=== PATIENT | male | born 1995 | race Hispanic/Latino ===

== ENCOUNTER 2025-05-03 12:08 | Inpatient (IN) | payer SELFPAY ==
[2025-05-02 15:45] VITALS: BP 163/101
[2025-05-02 16:12] VITALS: BMI 37.0
--- NOTE | 2025-05-02 16:12 | ED.GENMED ---
History of Present Illness
<Lena Hand PA-C - Last Filed: 05/02/25 22:20>
General
Chief Complaint: Abdominal Pain
Source: patient
Exam Limitations: none
Time Seen by Provider: 05/02/25 15:56
History of Present Illness
History of Present Illness:
29yoM with no significant past medical history presenting for evaluation of abdominal pain. He is Niuean speaking and history is obtained with the assistance of a video interpreter translator. He reports severe pain in his left lower quadrant that started
yesterday. Pain is worse with movement. He denies any trauma or inciting incident. No history of similar pains in the past. Pain worsens when he defecates and he is having 'a little' diarrhea. He also reports decreased urine output and
subjective fevers at home. Temperature is 100.7 on arrival. He denies any nausea, vomiting, flank pain, testicular pain, scrotal swelling. No prior abdominal surgeries.
Phy Exam
<Lena Hand PA-C - Last Filed: 05/02/25 22:20>
Physical Exam
Physical Exam:
Appears uncomfortable due to pain
General Physical Exam
General Presentation: mild distress
General age: appears stated age
General Skin: warm and dry
General Habitus: normal
General Mental: alert
ENT Exam
ENT Exam: normocephalic
Pulmonary Exam
Pulmonary Exam: no respiratory distress
Gastrointestinal Exam
Gastrointestinal Exam: soft, non distended and other (+Tenderness in suprapubic and LLQ region. +Voluntary guarding. No rebound. Abdomen soft, non-distended. )
Neurological Exam
Neurological Exam: alert
Guerline Coma Scale
Eye Opening: Spontaneous
Verbal Response: Oriented
Motor Response: Obeys Commands
GCS Total Score: 15
Skin Exam
Skin Exam: normal color and warm/dry
Psychiatric Exam
Psychiatric Exam: normal mood/affect
<Laz Saunders DO - Last Filed: 05/02/25 20:11>
Guerline Coma Scale
GCS Total Score: 15
Sepsis
<Lena Hand PA-C - Last Filed: 05/02/25 22:20>
Sepsis Screening
Sepsis Assessment: Sepsis
Sepsis Screen
Sepsis Screen: Sepsis
Date: 05/02/25
Time: 22:18
Course
<Lena Hand PA-C - Last Filed: 05/02/25 22:20>
Orders/Labs/Results
Orders:
Orders
05/02/25 Dinner
NPO
Allow oral meds: Yes
Allow clear liquids: Sips of Clears
05/02/25 16:10
0.9% Sodium Chloride 1000 ml [Nss] 1,000 ml IV BOLUS
Acetaminophen [Tylenol] 1,000 mg PO NOW STA
HYDROmorphone [Dilaudid] 0.5 mg IV NOW STA
05/02/25 16:11
CT Abd/pelvis W Iv Cont Urgent
Comment:
Reason For Exam: LLQ pain, fever
05/02/25 16:20
Complete Blood Count/With Diff Urgent
Comprehensive Metabolic Panel Urgent
Lactate Level [Lactic Acid] Urgent
Lipase Urgent
05/02/25 16:54
0.9% Sodium Chloride 1000 ml [Nss] 1,000 ml IV BOLUS
05/02/25 17:09
Urinalysis Reflex To Culture Urgent
Date Specimen was Collected: 05/02/25
Time Specimen was Collected: 16:50
05/02/25 17:51
HYDROmorphone [Dilaudid] 1 mg IV NOW STA
05/02/25 18:40
Blood Culture Q30M
SHARI Source: Blood/Venous
Specimen Description:
Blood Culture Q30M
SHARI Source: Blood/Venous
Specimen Description:
05/02/25 19:13
Piperacillin/Tazo 4.5 Gram [Zosyn] 4.5 gram in 100 ml IV NOW
05/02/25 19:57
Admit/Transfer Patient As Directed
Co-Sign Provider:
Level of Care: Observation services
Assign to:: Medical/Surgical
Physician / Group: devang
Diagnosis: colitis
Code Status As Directed
Resuscitation Status: Full Code
PRN Pain Medication Management As Directed
May give lesser potent ordered pain med per pt: Yes
preference::
Protocol:: Medication orders for pain may be administered in a
manner that supports deferring to patient preference
when the pt is:
- Requesting an ordered lesser potent pain medication.
Least to most potent pain medications are defined
as: acetaminophen < NSAID < tramadol < opioids
(morphine, oxycodone, hydromorphone).
- Requesting a lesser dose of the same medication IF
ORDERED.
- Requesting a less intrusive route of administration
if both routes are prescribed by the provider (PO <
IV).
05/02/25 20:02
CDIFF [C difficile Antigen & Toxins] Routine
SHARI Source: Feces/Stool
Specimen Description:
Norovirus by PCR Routine
SHARI Source: Feces/Stool
Specimen Description:
Stool Culture Routine
SHARI Source: Feces/Stool
Specimen Description:
05/02/25 21:07
0.9% Sodium Chloride 1000 ml [Nss] 1,000 ml IV 100 mls/hr
HYDROmorphone [Dilaudid] 0.5 mg IV Q4HPRN PRN
Heparin 5,000 units SC Q12
Ondansetron Injectable [Zofran] 4 mg IV Q6HPRN PRN
05/02/25 21:07
Activity As Directed
Activity Level: As Tolerated
Vital Signs As Directed
Frequency: Per unit guidelines
DX Deep Vein Thrombosis Video Routine
05/02/25 22:00
Acetaminophen [Tylenol] 650 mg PO Q4HPRN PRN
05/03/25 01:00
Piperacillin/Tazo 3.375 Gram [Zosyn] 3.375 gram in 50 ml IV Q6H
05/03/25 06:00
Complete Blood Count/With Diff IN AM
Comprehensive Metabolic Panel IN AM
Abnormal Lab Results
05/02/25 05/02/25
16:20 17:09
Absolute Neuts (auto) 7.7 H 10^3/uL
(1.4-6.5)
Lymphocytes % 18.5 L %
(20.5-51.1)
Glucose 209 H mg/dl
(70-99)
Lactic Acid 3.5 H mmol/L
(0.7-2.0)
ALT 161 H U/L
(0-50)
Total Protein 8.5 H g/dl
(6.3-8.2)
Urine Glucose 1+ A
(Negative)
05/02/25 16:20
05/02/25 16:20
Vital Signs
Initial and Last Documented VS:
Initial Vital Signs
Temp Pulse Resp BP Pulse Ox
100.7 F H 133 18 163/101 98
05/02/25 15:45 05/02/25 15:45 05/02/25 15:45 05/02/25 15:45 05/02/25 15:45
Last Documented Vital Signs
Temp Pulse Resp BP Pulse Ox
99.1 F 133 18 120/73 95
05/02/25 21:42 05/02/25 15:45 05/02/25 15:45 05/02/25 21:39 05/02/25 21:39
<Laz Saunders DO - Last Filed: 05/02/25 20:11>
Orders/Labs/Results
Orders:
Orders
05/02/25 Dinner
NPO
Allow oral meds: Yes
Allow clear liquids: Sips of Clears
05/02/25 16:10
0.9% Sodium Chloride 1000 ml [Nss] 1,000 ml IV BOLUS
Acetaminophen [Tylenol] 1,000 mg PO NOW STA
HYDROmorphone [Dilaudid] 0.5 mg IV NOW STA
05/02/25 16:11
CT Abd/pelvis W Iv Cont Urgent
Comment:
Reason For Exam: LLQ pain, fever
05/02/25 16:20
Complete Blood Count/With Diff Urgent
Comprehensive Metabolic Panel Urgent
Lactate Level [Lactic Acid] Urgent
Lipase Urgent
05/02/25 16:54
0.9% Sodium Chloride 1000 ml [Nss] 1,000 ml IV BOLUS
05/02/25 17:09
Urinalysis Reflex To Culture Urgent
Date Specimen was Collected: 05/02/25
Time Specimen was Collected: 16:50
05/02/25 17:51
HYDROmorphone [Dilaudid] 1 mg IV NOW STA
05/02/25 18:40
Blood Culture Q30M
SHARI Source: Blood/Venous
Specimen Description:
Blood Culture Q30M
SHARI Source: Blood/Venous
Specimen Description:
05/02/25 19:13
Piperacillin/Tazo 4.5 Gram [Zosyn] 4.5 gram in 100 ml IV NOW
05/02/25 19:57
Admit/Transfer Patient As Directed
Co-Sign Provider:
Level of Care: Observation services
Assign to:: Medical/Surgical
Physician / Group: devang
Diagnosis: colitis
Code Status As Directed
Resuscitation Status: Full Code
PRN Pain Medication Management As Directed
May give lesser potent ordered pain med per pt: Yes
preference::
Protocol:: Medication orders for pain may be administered in a
manner that supports deferring to patient preference
when the pt is:
- Requesting an ordered lesser potent pain medication.
Least to most potent pain medications are defined
as: acetaminophen < NSAID < tramadol < opioids
(morphine, oxycodone, hydromorphone).
- Requesting a lesser dose of the same medication IF
ORDERED.
- Requesting a less intrusive route of administration
if both routes are prescribed by the provider (PO <
IV).
05/02/25 20:02
CDIFF [C difficile Antigen & Toxins] Routine
SHARI Source: Feces/Stool
Specimen Description:
Norovirus by PCR Routine
SHARI Source: Feces/Stool
Specimen Description:
Stool Culture Routine
SHARI Source: Feces/Stool
Specimen Description:
05/02/25 21:07
0.9% Sodium Chloride 1000 ml [Nss] 1,000 ml IV 100 mls/hr
HYDROmorphone [Dilaudid] 0.5 mg IV Q4HPRN PRN
Heparin 5,000 units SC Q12
Ondansetron Injectable [Zofran] 4 mg IV Q6HPRN PRN
05/02/25 21:07
Activity As Directed
Activity Level: As Tolerated
Vital Signs As Directed
Frequency: Per unit guidelines
DX Deep Vein Thrombosis Video Routine
05/02/25 22:00
Acetaminophen [Tylenol] 650 mg PO Q4HPRN PRN
05/03/25 01:00
Piperacillin/Tazo 3.375 Gram [Zosyn] 3.375 gram in 50 ml IV Q6H
05/03/25 06:00
Complete Blood Count/With Diff IN AM
Comprehensive Metabolic Panel IN AM
Abnormal Lab Results
05/02/25 05/02/25
16:20 17:09
Absolute Neuts (auto) 7.7 H 10^3/uL
(1.4-6.5)
Lymphocytes % 18.5 L %
(20.5-51.1)
Glucose 209 H mg/dl
(70-99)
Lactic Acid 3.5 H mmol/L
(0.7-2.0)
ALT 161 H U/L
(0-50)
Total Protein 8.5 H g/dl
(6.3-8.2)
Urine Glucose 1+ A
(Negative)
05/02/25 16:20
05/02/25 16:20
Vital Signs
Initial and Last Documented VS:
Initial Vital Signs
Temp Pulse Resp BP Pulse Ox
100.7 F H 133 18 163/101 98
05/02/25 15:45 05/02/25 15:45 05/02/25 15:45 05/02/25 15:45 05/02/25 15:45
Last Documented Vital Signs
Temp Pulse Resp BP Pulse Ox
99.1 F 133 18 120/73 95
05/02/25 21:42 05/02/25 15:45 05/02/25 15:45 05/02/25 21:39 05/02/25 21:39
Saullt;Lena Hand PA-C - Last Filed: 05/02/25 22:20>
MDM/Problems Addressed
Differential Diagnosis Includes:
29yoM here with LLQ pain x 1 day. Febrile to 100.7 on arrival with associated tachycardia. Patient appears uncomfortable. Voluntary guarding noted on abdominal exam. Differential diagnosis includes but is not limited to: appendicitis,
diverticulitis, colitis, perforated viscous, kidney stone
Initial ED plan: Check abdominal labs, lactate, UA, and CT abdomen. Tylenol, IV Dilaudid, and fluid bolus for symptoms.
<Lena Hand PA-C - Last Filed: 05/02/25 22:20>
*Pulse Oximetry
SaO2: 98
Oxygen Mode of Delivery: Room air
Patient hypoxic: no
*Critical Care Note
Total Time (30-74mins, 75-104mins- exclusive of procedures): Not Applicable
<Lena Hand PA-C - Last Filed: 05/02/25 22:20>
Update Note
Update Note:
White count normal but lactate elevated at 3.5. Glucose also elevated at 209, no known history of diabetes. CT shows inflamed segment of proximal sigmoid colon which may be diverticulitis vs. colitis. Patient spiked a fever to 102.5 while in
emergency department. Blood cultures and IV Zosyn ordered. Patient also requiring multiple doses of Dilaudid for pain control. Patient admitted for further evaluation and management.
ED Attending Note
<Lena Hand PA-C - Last Filed: 05/02/25 22:20>
-
Portions of this chart may have been created with voice recognition software.� Occasional wrong word or��sound alike� substitutions may have occurred due to the inherent limitations of voice recognition software.
<Laz Saunders DO - Last Filed: 05/02/25 20:11>
ED Attending Note
Patient seen and examined by attending physician: Yes
I performed the substantive portion of visit, reviewed & personally made and approve the management plan that is documented in note by myself or ADRI.: Yes
ED Attending Note:
Seen with PA examined independently agree with assessment and plan 29-year-old male left lower abdominal pain fever CT report noted
Discharge Plan
Departure
Patient Disposition: Admit
Date of Disposition: 05/02/25
Time of Disposition: 19:35
Presentation/result/management discussed w/ accepting MD/DO: Hospitalist
Discharge Problem:
Colitis, Sepsis
Interventions
Interventions:
*Risk Screen - Suicide Last Done: 05/02/25 15:51
*General Assessment Last Done: 05/02/25 16:33
*Neglect/Abuse Screening Last Done: 05/02/25 15:51
*ED- Fall Risk Assessment Last Done: 05/02/25 16:33
*ED COVID-19 Vaccine History Last Done: 05/02/25 16:33
*ED Influenza Vaccine History Last Done: 05/02/25 16:33
QJ-Dkckfk-Osuhkigxtw Assessment Last Done: 05/02/25 16:33
[2025-05-02 16:13] VITALS: BP 157/88
[2025-05-02] MEDS: NSS 1000 IV ×3 (16:21→21:34)
[2025-05-02] MEDS: TYLENOL 1000 MG PO (16:23)
[2025-05-02] MEDS: DILAUDID 0.5 MG IV (16:24)
[2025-05-02 16:44] LABS: Hematocrit 43.8 % (39.0-52.0); Hemoglobin 15.9 g/dL (13.0-18.0); Mean Corp Hgb Conc. 36.3 g/dL (33.0-37.0); Mean Corpuscular Volume 81.1 fL (80.0-94.0); Nucleated Red Blood Cells % 0 % (-); Platelet Count 225 10^3/uL (130-400); Red Cell Dist. Width 12.3 % (11.5-14.5)
[2025-05-02 16:53] LABS: ALT (SGPT) 161 U/L (0-50); AST (SGOT) 55 U/L (17-59); Albumin 4.9 g/dl (3.5-5.0); Alkaline Phosphatase 117 U/L (38-126); Blood Urea Nitrogen 10 mg/dl (9-20); Calcium 9.2 mg/dl (8.4-10.2); Carbon Dioxide 26 mmol/L (22-30); Chloride 101 mmol/L (98-107); Estimated Creatinine Clearance > 125 ml/min; Glucose 209 mg/dl (70-99); Lipase 100 U/L (23-300); Potassium 4.4 mmol/L (3.5-5.1); Sodium 140 mmol/L (135-145); Total Protein 8.5 g/dl (6.3-8.2); eGFR > 60.00
[2025-05-02 17:17] LABS: Urine Character Clear (Clear)
[2025-05-02] MEDS: DILAUDID 1 MG IV (18:10)
[2025-05-02 18:17] VITALS: BP 132/67
[2025-05-02] MEDS: ZOSYN 100 IV (19:19)
--- NOTE | 2025-05-02 19:59 | HPS.HSE ---
Addendum entered and electronically signed by Yady Ritter MD 05/02/25 20:02:
CT scan showed 7 cm segment of proximal sigmoid colon wall thickening inflammatory soft tissue stranding which could may be diverticulitis versus colitis.
Original Note:
Family Physician
-
Family Physician: * NONE
Chief Complaint
-
abdominal pain
History of Present Illness
29-year-old Portuguese-speaking male presenting for abdominal pain in the left lower quadrant the started yesterday. Pain is worse with movement. Denies any trauma. Denies any prior history of similar pain. Pain is worse with having a bowel
movement and he has a little bit loose stool. He has decreased urine output. He has subjective fever. Denies any nausea or vomiting or flank pain or testicular pain.
He occasionally drinks 3-4 beers when he is tired or stressed. He smokes occasionally.
He ate raw chicken 3 days ago. Denies any recent travel.
Medical History
Past Medical History
Past Medical History: Reports None
Past Surgical History: Reports None
Social History
Tobacco: Smoker
Alcohol: Occasional
Drug: None
Family History
Family History: Not pertinent
Allergies / Home Medications
Allergies reflects when Allergies were last updated in [facility].
Home Medications with original date entered in [facility]
Allergy/Medication List:
Allergies
Allergy/AdvReac Type Severity Reaction Status Date / Time
aspirin Allergy Anaphylaxis Verified 05/02/25 15:50
Review of Systems
-
History Source: Patient
A 12 point ROS was completed and negative except as noted: Yes
Constitutional: Reports No Symptoms
EENT: Reports No Symptoms
Respiratory: Reports No Symptoms
Cardiac: Reports No Symptoms
Abdomen/GI: Reports See HPI
: Reports No Symptoms
Musculoskeletal: Reports No Symptoms
Skin: Reports No Symptoms
Neurological: Reports No Symptoms
Endocrine: Reports No Symptoms
Hematologic/Lymphatic: Reports No Symptoms
Psych: Reports No Symptoms
Physical Exam
Vital Signs
Vital Signs
Temp Pulse Resp BP Pulse Ox
102.5 F H 133 18 132/67 98
05/02/25 18:16 05/02/25 15:45 05/02/25 15:45 05/02/25 18:17 05/02/25 18:18
Physical Exam
General: Well Developed, Well Nourished and No Apparent Distress
HEENT: NormoCephalic, Moist mucous membranes and Atraumatic
Respiratory: Clear
Cardiac: S1/S2 and Regular Rhythm; No Murmur or Rub
GI: Soft, Non Distended, Normal Bowel Sounds and Tender (LLQ ); No Organomegaly
Rectal: Deferred by Provider
Musculoskeletal: No Clubbing, No Cyanosis and No Edema
Skin: No Rash
Neuro: Nonfocal/grossly intact
Laboratory Results
-
05/02/25 16:20
05/02/25 16:20
Laboratory Results
Lactic Acid 3.5 mmol/L (0.7-2.0) H 05/02/25 16:20
Total Bilirubin 0.5 mg/dl (0.2-1.3) 05/02/25 16:20
AST 55 U/L (17-59) 05/02/25 16:20
ALT 161 U/L (0-50) H 05/02/25 16:20
Alkaline Phosphatase 117 U/L (38-126) 05/02/25 16:20
Lipase 100 U/L (23-300) 05/02/25 16:20
Data Reviewed
-
Lab Data: Labs Reviewed by me
Old Records: Reviewed
Impression/Plan
-
IMPRESSION:
PLAN:
# Acute colitis versus diverticulitis
-Blood cultures pending
-Stool studies if can check
-N.p.o.
- IV fluids
- Zosyn
- Zofran, Dilaudid
Full code
DVT prophylaxis heparin
N.p.o.
[2025-05-02] MEDS: HEPARIN 5000 UNITS SC (21:34)
[2025-05-02 21:39] VITALS: BP 120/73
[2025-05-03] MEDS: ZOSYN 50 IV ×4 (01:57→20:19)
[2025-05-03 06:22] LABS: Hematocrit 35.8 % (39.0-52.0); Hemoglobin 13.1 g/dL (13.0-18.0); Mean Corp Hgb Conc. 36.6 g/dL (33.0-37.0); Mean Corpuscular Volume 81.4 fL (80.0-94.0); Nucleated Red Blood Cells % 0 % (-); Platelet Count 196 10^3/uL (130-400); Red Cell Dist. Width 12.2 % (11.5-14.5)
[2025-05-03 06:48] LABS: ALT (SGPT) 113 U/L (0-50); AST (SGOT) 37 U/L (17-59); Albumin 3.8 g/dl (3.5-5.0); Alkaline Phosphatase 84 U/L (38-126); Blood Urea Nitrogen 11 mg/dl (9-20); Calcium 8.6 mg/dl (8.4-10.2); Carbon Dioxide 26 mmol/L (22-30); Chloride 103 mmol/L (98-107); Estimated Creatinine Clearance > 125 ml/min; Glucose 133 mg/dl (70-99); Potassium 3.6 mmol/L (3.5-5.1); Sodium 133 mmol/L (135-145); Total Protein 6.9 g/dl (6.3-8.2); eGFR > 60.00
[2025-05-03] MEDS: HEPARIN 5000 UNITS SC ×2 (08:01→21:27)
[2025-05-03] MEDS: TYLENOL 650 MG PO (08:01)
[2025-05-03] MEDS: NSS 1000 IV ×2 (08:03→16:23)
[2025-05-03 08:13] VITALS: BP 106/60
--- NOTE | 2025-05-03 08:58 | W.PN.HOSP.TC ---
Addendum entered and electronically signed by Paris Rogel MD 05/03/25 12:07:
Attending�addendum:
I saw and evaluated the patient. I reviewed the resident�s note and agree with findings and plan as documented in the resident�s note. Admitted this a day with abdominal pain, CT finding shows colitis/diverticulitis, noted to have lactic acidosis,
patient was started on IV fluid and IV Zosyn,�patient seen and examined at bedside, denies any chest pain or shortness of breath, still with mild abdominal pain, but no nausea, no vomiting, no diarrhea or constipation.
Physical�exam:
GENERAL : Patient is awake, alert, oriented x3
HEENT: Nonicteric sclerae, PERRLA, EOMI. Oropharynx clear. Moist mucous membranes. Conjunctivae appear well perfused.
CHEST: Chest wall is nontender.
HEART: Regular rate and rhythm without murmurs.
LUNGS: Clear to auscultation bilaterally.
ABDOMEN: Soft, positive bowel sounds, nontender, no organomegaly.
RECTAL: Deferred.
MUSCLES/EXTREMITIES: No abnormal range of motion, no swelling.SKIN: No rash, no excessive bruising, petechiae, or purpura.
NEUROLOGIC: Cranial nerves II-XII intact without motor/sensory deficit.
�
Assessment/plan:
Severe sepsis with acute organ dysfunction.
Acute organ function in form of lactic acidosis.
Patient meets sepsis criteria on admission.
Fever, tachycardia
Antibiotic in form of Zosyn.
IV fluid.
Ordered diet if patient still have pain will upgrade to inpatient.
Pending stool studies.
CODE STATUS: Full code
DVT prophylaxis: Heparin
Diet: CLd/LRD
Disposition: Upgrade to inpatient
�
Total time spent on today�s encounter was 51 minutes which included time spent in counseling the patient/family regarding diagnosis and treatment plan as listed above, goals of care, and symptom management. Case was discussed with nursing staff,
specialists, and care coordinators/case management. All labs and imaging personally reviewed by me. Remainder the time spent in detailed review of previous records, lab data, imaging, and other medical provider documentation.
Original Note:
Today's Communication/Plan
-
Trend lactate
Continue IVF, antibiotics
CM consult
Assessment / Plan
Assessment / Plan
ASSESSMENT:
A 29 year old male with no significant past medical history who presented to the ED with abdominal pain. Patient consumed undercooked chicken 3 days ago, and developed mild abdominal pain 2 days ago. The pain has been worsening in severity and is
worsened with movement and passing bowels. He also endorses loose stool, decreased urine output and a subjective fever at home. Denies nausea, vomiting, headache, shortness of breath, chest pain or any other symptoms. No trauma or similar episodes
in the past.
CT A/P 05/02/25: 7 cm segment of the proximal sigmoid colon with wall thickening and inflammatory soft tissue stranding. Possible considerations include acute diverticulitis, though no specific diverticulum is identified. The differential may
include nonspecific localized segmental colitis. No evidence of pneumatosis. No perforation. No focal collection or abscess. No bowel obstruction. No obstructive uropathy.
PLAN:
# Sepsis secondary to acute colitis versus diverticulitis
CT as above
Lactate on admission 3.5. Trend lactate.
Tmax 102.5 on 05/02/25. Afebrile now.
NPO on 05/02/2025; patient has improvement in symptoms; low residue diet 05/03/2025
Continue IV fluids
Continue IV Zosyn. Follow blood cultures.
Continue Zofran PRN for nausea
Continue Tylenol 650 mg q4PRN Dilaudid PRN for pain
Full code
DVT prophylaxis: heparin
Anticipated Discharge: 24 - 48 hours
Subjective/Interval History
-
Date of Service: May 03, 2025
Patient evaluated at bedside this morning with the help of admeasurer [id number]. Patient presented to the ED with abdominal pain. He consumed undercooked chicken 3 days ago (Tuesday) after which she developed mild abdominal pain on Tuesday.
The abdominal pain is mostly localized in the left lower quadrant and has been worsening in severity. Patient reports severe LLQ pain yesterday with associated decreased which prompted the ED visit. No nausea, vomiting, headache, shortness of
breath, chest pain or any other symptoms. No trauma or similar episodes in the past.
Patient's abdominal pain has improved since yesterday. No diarrhea today. No new complaints.
Objective Data
-
Labs:
Laboratory Results
05/03/25
05:56
WBC 8.8
Hgb 13.1
Hct 35.8 L
Plt Count 196
Sodium 133 L
Potassium 3.6
Chloride 103
Carbon Dioxide 26
BUN 11
Creatinine 0.6 L
Glucose 133 H
Calcium 8.6
Total Bilirubin 0.9
AST 37
ALT 113 H
Alkaline Phosphatase 84
Vital Signs:
Vital Signs
Temp Pulse Resp BP Pulse Ox
98.0 F 80 18 106/60 98
05/03/25 08:13 05/03/25 08:13 05/03/25 08:13 05/03/25 08:13 05/03/25 08:13
Review of Systems
-
History Source: Patient
Constitutional: Reports No Symptoms
EENT: Reports No Symptoms Reported
Respiratory: Reports No Symptoms
Cardiac: Reports No Symptoms
Abdomen/GI: Reports Abdominal Pain
Genitourinary: Reports Other (Decreased urine output)
Skin: Reports No Symptoms
Neuro: Reports No Symptoms
Endocrine: Reports No Symptoms
Hematologic / Lymphatic: Reports No Symptoms
Physical Exam
-
General: Well Developed, Well Nourished, No Apparent Distress, Comfortable and Conversant
HEENT: Normocephalic, Atraumatic, Moist Mucous Membranes, Nose Appears Normal and Ears Appear Normal
Respiratory: Clear to Auscultation
Cardiac: Regular Rhythm and S1/S2
GI: Soft, Nondistended, Normal Bowel Sounds and Tender (LLQ)
Musculoskeletal: No Clubbing, No Cyanosis and No Edema
Skin: Warm
Neuro: Awake and AO x 3
Psych: Calm
Data Reviewed
-
CT Scan: Report Reviewed by me, Discussed with Physician and Discussed with Patient
Labs: Labs Reviewed by me, Discussed with Physician and Discussed with Patient
Old Records: Reviewed
--- NOTE | 2025-05-03 09:56 | EDCM ---
CM reviewed chart and met with pt bedside in ED. Video policy director used. Lives with his uncle, independent, no assistive devices, no DME.
OBS form reviewed and signed, copy left with pt.
Confirms he does not have health insurance and does not have PCP. Given [place] language brochure for [facility].
I emailed Emilee at [facility] and asked her to follow up with pt.
Pharmacy- [facility]
Anticipate discharge home, no needs. CM will continue to follow for any discharge planning needs.
[2025-05-03 11:14] VITALS: BP 117/59
[2025-05-03 11:15] VITALS: BMI 57.7
[2025-05-03 15:03] VITALS: BP 106/50
[2025-05-03 23:19] VITALS: BP 123/79
[2025-05-04] MEDS: ZOSYN 50 IV ×2 (01:45→06:22)
[2025-05-04] MEDS: NSS 1000 IV (05:30)
[2025-05-04] MEDS: HEPARIN SC (07:56)
[2025-05-04 08:10] VITALS: BP 114/80
[2025-05-04 08:18] LABS: Hematocrit 39.1 % (39.0-52.0); Hemoglobin 13.7 g/dL (13.0-18.0); Mean Corp Hgb Conc. 35.0 g/dL (33.0-37.0); Mean Corpuscular Volume 81.6 fL (80.0-94.0); Nucleated Red Blood Cells % 0 % (-); Platelet Count 224 10^3/uL (130-400); Red Cell Dist. Width 12.2 % (11.5-14.5)
--- NOTE | 2025-05-04 08:25 | W.PN.HOSP.TC ---
Addendum entered and electronically signed by Paris Rogel MD 05/04/25 13:01:
Attending�addendum:
I saw and evaluated the patient. I reviewed the resident�s note and agree with findings and plan as documented in the resident�s note. Patient seen and examined at bedside, denies any chest pain or shortness of breath, no abdominal pain, no nausea,
no vomiting, no diarrhea or constipation.
Physical�exam:
GENERAL : Patient is awake, alert, oriented x3
HEENT: Nonicteric sclerae, PERRLA, EOMI. Oropharynx clear. Moist mucous membranes. Conjunctivae appear well perfused.
CHEST: Chest wall is nontender.
HEART: Regular rate and rhythm without murmurs.
LUNGS: Clear to auscultation bilaterally.
ABDOMEN: Soft, positive bowel sounds, nontender, no organomegaly.
RECTAL: Deferred.
MUSCLES/EXTREMITIES: No abnormal range of motion, no swelling.SKIN: No rash, no excessive bruising, petechiae, or purpura.
NEUROLOGIC: Cranial nerves II-XII intact without motor/sensory deficit.
�
Assessment/plan:
Severe sepsis with acute organ dysfunction.
Acute organ function in form of lactic acidosis.
Patient meets sepsis criteria on admission.
Fever, tachycardia
Antibiotic in form of Zosyn.
IV fluid.
Ordered diet if patient still have pain will upgrade to inpatient.
Pending stool studies.
05/04
Stool study negative.
Symptoms improved.
Discharge home on oral Augmentin
CODE STATUS: Full code
DVT prophylaxis: Heparin
Diet: regular
Disposition: Discharge home
�
Total time spent on today�s encounter was 51 minutes which included time spent in counseling the patient/family regarding diagnosis and treatment plan as listed above, goals of care, and symptom management. Case was discussed with nursing staff,
specialists, and care coordinators/case management. All labs and imaging personally reviewed by me. Remainder the time spent in detailed review of previous records, lab data, imaging, and other medical provider documentation.
Original Note:
Today's Communication/Plan
-
DC with Augmentin 500 mg twice daily for 5 days
Assessment / Plan
Assessment / Plan
ASSESSMENT:
A 29 year old male with no significant past medical history who presented to the ED with abdominal pain. Patient consumed undercooked chicken 3 days ago, and developed mild abdominal pain 2 days ago. The pain has been worsening in severity and is
worsened with movement and passing bowels. He also endorses loose stool, decreased urine output and a subjective fever at home. Denies nausea, vomiting, headache, shortness of breath, chest pain or any other symptoms. No trauma or similar episodes
in the past.
CT A/P 05/02/25: 7 cm segment of the proximal sigmoid colon with wall thickening and inflammatory soft tissue stranding. Possible considerations include acute diverticulitis, though no specific diverticulum is identified. The differential may
include nonspecific localized segmental colitis. No evidence of pneumatosis. No perforation. No focal collection or abscess. No bowel obstruction. No obstructive uropathy.
PLAN:
# Sepsis secondary to acute colitis versus diverticulitis
CT as above
Lactate on admission 3.5. Improved to 0.7 on 05/04/2025.
Tmax 102.5 on 05/02/25. Afebrile now.
NPO on 05/02/2025; patient has improvement in symptoms; low residue diet since 05/03/2025
S/p IV fluids
S/p IV Zosyn. Blood cultures negative to date. patient to be discharged with Augmentin 500 mg twice daily for 5 additional days.
Zofran as needed was used for nausea
Tylenol 650 mg q4PRN Dilaudid PRN was used for pain
Full code
DVT prophylaxis: heparin
Anticipated Discharge: Today
Subjective/Interval History
-
Date of Service: May 04, 2025
Patient evaluated at bedside. He states he does not have any more pain. No new complaints. Expresses he would like to go home.
Objective Data
-
Labs:
Laboratory Results
05/04/25
08:10
WBC 6.6
Hgb 13.7
Hct 39.1
Plt Count 224
Sodium Pending
Potassium Pending
Chloride Pending
Carbon Dioxide Pending
BUN Pending
Creatinine Pending
Glucose Pending
Calcium Pending
Vital Signs:
Vital Signs
Temp Pulse Resp BP Pulse Ox
99.7 F 85 16 123/79 99
05/03/25 23:19 05/03/25 23:19 05/03/25 23:19 05/03/25 23:19 05/03/25 23:19
I&O
05/03/25 05/04/25 05/05/25
06:59 06:59 05:59
Intake Total 1160 / 1160
Balance 1160 / 1160
Review of Systems
-
History Source: Patient
All other systems: Reviewed and negative
Constitutional: Reports No Symptoms
EENT: Reports No Symptoms Reported
Respiratory: Reports No Symptoms
Cardiac: Reports No Symptoms
Abdomen/GI: Reports No Symptoms
Breast: Reports No Symptoms
Genitourinary: Reports No Symptoms
Musculoskeletal: Reports No Symptoms
Skin: Reports No Symptoms
Neuro: Reports No Symptoms
Physical Exam
-
General: Well Developed, Well Nourished, No Apparent Distress, Comfortable and Conversant
HEENT: Normocephalic, Atraumatic, Moist Mucous Membranes and Anicteric
Respiratory: Clear to Auscultation
Cardiac: Regular Rhythm, S1/S2 and Other
GI: Soft, Nontender, Nondistended, Normal Bowel Sounds and No Hepatosplenomegaly
Musculoskeletal: No Clubbing, No Cyanosis and No Edema
Skin: Warm
Neuro: Awake, AO x 3, Nonfocal/Grossly Intact and No Sensory Deficits
Psych: Calm
Data Reviewed
-
Labs: Labs Reviewed by me and Discussed with Physician
Old Records: Reviewed
[2025-05-04 08:55] LABS: Blood Urea Nitrogen 12 mg/dl (9-20); Calcium 9.0 mg/dl (8.4-10.2); Carbon Dioxide 27 mmol/L (22-30); Chloride 102 mmol/L (98-107); Estimated Creatinine Clearance > 125 ml/min; Glucose 114 mg/dl (70-99); Sodium 136 mmol/L (135-145); eGFR > 60.00
--- NOTE | 2025-05-04 09:59 | CM ---
Chart reviewed and patient is for discharge to home today, no needs.
Plan; Home to uncle's house.
--- NOTE | 2025-05-04 12:55 | W.DCSUMMARY ---
Addendum entered and electronically signed by Paris Rogel MD 05/04/25 13:02:
Attending�addendum:
I saw and evaluated the patient. I reviewed the resident�s note and agree with findings and plan as documented in the resident�s note. Patient seen and examined at bedside, denies any chest pain or shortness of breath, no abdominal pain, no nausea,
no vomiting, no diarrhea or constipation.
Physical�exam:
GENERAL : Patient is awake, alert, oriented x3
HEENT: Nonicteric sclerae, PERRLA, EOMI. Oropharynx clear. Moist mucous membranes. Conjunctivae appear well perfused.
CHEST: Chest wall is nontender.
HEART: Regular rate and rhythm without murmurs.
LUNGS: Clear to auscultation bilaterally.
ABDOMEN: Soft, positive bowel sounds, nontender, no organomegaly.
RECTAL: Deferred.
MUSCLES/EXTREMITIES: No abnormal range of motion, no swelling.SKIN: No rash, no excessive bruising, petechiae, or purpura.
NEUROLOGIC: Cranial nerves II-XII intact without motor/sensory deficit.
�
Assessment/plan:
Severe sepsis with acute organ dysfunction.
Acute organ function in form of lactic acidosis.
Patient meets sepsis criteria on admission.
Fever, tachycardia
Antibiotic in form of Zosyn.
IV fluid.
Ordered diet if patient still have pain will upgrade to inpatient.
Pending stool studies.
05/04
Stool study negative.
Symptoms improved.
Discharge home on oral Augmentin
CODE STATUS: Full code
DVT prophylaxis: Heparin
Diet: regular
Disposition: Discharge home
�
Total time spent on today�s encounter was 40 minutes which included time spent in counseling the patient/family regarding diagnosis and treatment plan as listed above, goals of care, and symptom management. Case was discussed with nursing staff,
specialists, and care coordinators/case management. All labs and imaging personally reviewed by me. Remainder the time spent in detailed review of previous records, lab data, imaging, and other medical provider documentation.
Original Note:
Documented by User: Tee Hooper MD, Resident 05/04/25 12:58
Discharge Summary
Discharge Data
Date of Admission: 05/03/25
Date of Discharge: 05/04/25
-
Pending Results: Yes
Additional Pending Results:
Stool studies
Hospital Course
Discharging Physician : Dr. Paris Rogel and Dr. Tee Hooper
Disposition : Home
Primary care physician : N/A
Principal Discharge diagnosis : Sepsis in the setting of acute colitis versus diverticulitis
Hospital Course : 29-year-old male who presented to the ED with left lower quadrant abdominal pain for a few days after eating undercooked chicken. The pain was worsened with movement and after passing bowel movements, and associated with
stools/subjective fever. He denied nausea, vomiting, urinary symptoms. CT abdomen and pelvis demonstrated segmental wall thickening and inflammatory stranding of the proximal sigmoid colon, consistent with acute colitis versus diverticulitis.
There was no evidence of perforation, abscess or obstruction. The patient was started on IV fluids and empiric IV Zosyn. Blood culture showed no growth to date. He remained afebrile after admission, with improvement of the abdominal pain and
normalization of lactate from 3.5-2.7. Given his clinical improvement and tolerance of oral intake, patient was deemed stable for discharge with 5 additional days of Augmentin 500 mg twice daily. Patient advised to follow-up with the PCP within a
week. Patient showed understanding to this plan.
Important imaging findings :
CT abdomen/pelvis 05/02/25:
Mild hepatosplenomegaly. Fatty infiltration of liver.
7 cm segment of the proximal sigmoid colon with wall thickening and inflammatory soft tissue stranding. Possible considerations include acute diverticulitis, though no specific diverticulum is identified. The differential may include nonspecific
localized segmental colitis. No evidence of pneumatosis. No perforation. No focal collection or abscess.
No bowel obstruction. No obstructive uropathy.
Discharge Plan
-
Patient Disposition: Home (Routine Discharge)
Discharge Diagnosis/Procedures: Sepsis secondary to acute colitis versus diverticulitis
Condition: Good
Diet: Regular
Activity: As tolerated
Driving Restrictions: As prior to admission
Bathing Restrictions: None
Referrals:
pcp [Other] - in less than 1 week
Prescriptions:
New
amoxicillin-pot clavulanate 875-125 mg tablet
1 tab PO BID Qty: 10 0RF
Discharge Orders:
Discharge Patient (As Directed); Ordered 05/04/25
Ordered By: Tee Hooper
Discharge Date and Time
Discharge Date/Time: 05/04/25 10:50
Print Language: [place]

Documented by User: Paris Rogel MD 05/04/25 13:01
Discharge Summary
Discharge Data
Date of Admission: 05/03/25
Date of Discharge: 05/04/25
Discharge Plan
-
Patient Disposition: Home (Routine Discharge)
Discharge Diagnosis/Procedures: Sepsis secondary to acute colitis versus diverticulitis
Condition: Good
Diet: Regular
Activity: As tolerated
Driving Restrictions: As prior to admission
Bathing Restrictions: None
Referrals:
pcp [Other] - in less than 1 week
Prescriptions:
New
amoxicillin-pot clavulanate 875-125 mg tablet
1 tab PO BID Qty: 10 0RF
Discharge Orders:
Discharge Patient (As Directed); Ordered 05/04/25
Ordered By: Tee Hooper
Discharge Date and Time
Discharge Date/Time: 05/04/25 10:50
Print Language: [place]
== END 2025-05-04 10:50 | disposition home or self-care (01) | DRG 872 ==
LOC: 4 WEST ACU 12:08
PROVIDERS: Physician Assistant; ADMITTING PHYSICIAN Hospitalist; ATTENDING PHYSICIAN General Practice; EMERGENCY PHYSICIAN Emergency Medicine
DX: A41.9 Sepsis, unspecified organism (principal); E87.20 Acidosis, unspecified; K57.32 Diverticulitis of large intestine without perforation or abscess without bleeding; K58.9 Irritable bowel syndrome, unspecified; F17.200 Nicotine dependence, unspecified, uncomplicated; R65.20 Severe sepsis without septic shock; Z79.899 Other long term (current) drug therapy
CPT/HCPCS: 74177; 80048; 80053; 81003; 83605; 83690; 85025; 87040; 87045; 87046; 87324; 87427; 87449; 87798; 96361; 96365; 96375; 96376; 99285; Q9967